=== PATIENT | female | born 2005 | race Caucasian/White ===

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

== ENCOUNTER 2024-02-05 09:26 | Emergency (ER) | payer MEDICAID, SELFPAY ==
[2024-02-05 09:34] VITALS: BP 114/79; PULSE 100; RESP 18; O2SAT 100; BMI 21.2
--- NOTE | 2024-02-05 09:50 | XR_ITS ---
WS: [id number] Portable AP upright chest, 02/05/2024 Clinical Data: dyspnea/cough Comparison: None. Findings: No nodules, masses or effusions are seen. The heart is normal. The pulmonary vascularity is not increased. No pneumonia or pneumothorax is seen. XR/XR chest 1V portable [id number] Impression: Negative chest.
--- NOTE | 2024-02-05 09:53 | ED_ITS ---
HPI - General Adult 2 General: Chief complaint: General Medical Stated complaint: Throat swelling, turning purple Time Seen by Provider: 02/05/24 09:32 History of Present Illness: 18-year-old female who presents to the mergency room complaining of sore throat for the last week. Still a bit of swelling in her lip piercing as well. States she feels like she has a hard time breathing on arrival here respiratory rate is normalized that is normal she denies fever sweats or chills. She has not had any productive cough. No vomiting. Associated symptoms: Deny chest pain, dyspnea or rash Related Data Previous Rx's Medication Instructions Recorded clindamycin HCl 300 mg capsule 300 mg PO Q6H 10 days #40 caps 02/05/24 methylprednisolone 4 mg tablets in See Rx Instructions PO .COMPLEX 02/05/24 a dose pack (Medrol (David)) #21 ea Allergies Allergy/AdvReac Type Severity Reaction Status Date / Time No Known Allergies Allergy Verified 11/25/23 13:19 Review of Systems 2 Const: Denies: fever(s) or chills ENMT: Reports: throat pain, enlarged tonsils, odynophagia and hoarseness Card: Denies: chest pain Resp: Denies: dyspnea GI: Denies: abdominal pain : Denies: dysuria, urinary frequency or urinary urgency Musc: Denies: neck pain or back pain Skin/Breast: Denies: rash PFSH ED 2 PFSH: Social History Second hand smoke exposure: Yes Current gender identity: Female Physical Exam 2 Const: COMMON NORMALS: no acute distress GENERAL APPEARANCE: cooperative and comfortable ORIENTATION/CONSCIOUSNESS: Yes awake, Yes oriented to person, Yes oriented to place and Yes oriented to time HENMT: COMMON NORMALS: normocephalic, atraumatic and hearing grossly normal bilaterally HEAD & SCALP: normocephalic and atraumatic OTHER: Pharyngeal tonsils mildly inflamed with tonsillar exudate present mild posterior pharyngeal erythema. Examination of teeth no evidence of any significant gum swelling abscesses or infected dental caries Neck/C-Spine: OTHER: Nonspecific cervical lymphadenopathy. No submandibular swelling or fullness no parietal swelling fullness or tenderness Resp: COMMON NORMALS: normal respiratory effort, No retractions, No use of accessory muscles and clear to auscultation bilaterally AUSCULTATION: clear to auscultation bilaterally Cardio: COMMON NORMALS: regular rate, regular rhythm and No murmurs present (Cardio) RATE: regular rate RHYTHM: regular rhythm GI: COMMON NORMALS: Soft to palpation and No hepatosplenomegaly present A USCULTATION: Yes normoactive bowel sounds PALPATION: Yes Soft to palpation, No Tenderness to palpation present (GI), No Guarding due to palpation present (GI) and Yes No hepatosplenomegaly present Extremity: COMMON NORMALS: normal to inspection, capillary refill normal, no clubbing, cyanosis or edema, no calf tenderness and no pedal edema Neuro: SENSORIUM/ORIENTATION: Yes oriented to person, Yes oriented to place and Yes oriented to time Skin: COMMON NORMALS: no rashes or lesions noted GENERAL SKIN EXAM: no rashes or lesions noted Course 2 Vital Signs: Vital signs: Vital Signs Pulse Rate 93 02/05/24 10:21 Respiratory Rate 18 02/05/24 09:34 Blood Pressure 114/79 02/05/24 10:21 Pulse Oximetry 100 02/05/24 10:21 Oxygen Delivery Me thod Room Air 02/05/24 09:34 MDM - General Adult Medical Decision Making Strep and mono negative. She did some exudates on her tonsils mild erythema. She is concerned about her lip as well there is a piercing on the left lateral lower lip the posterior aspect of the posterior appears to be really through the piercing of the skin. It appears that the original piercing encompassed a larger amount of tissue and now there is a smaller tighter ring in place and it is eroding through the oral mucosa due to the increased tension. Recommend starting on a steroid taper and clindamycin. This also helps there is any infectious component to the piercing of the lip although it does not appear to be the case on exam. Recommend she swap out the piercing to a larger loop to minimize tension on the skin. If not improving follow-up with primary care Medical Records I reviewed the patient's medical records. Lab Data I reviewed the patient's lab results. 02/05/24 09:36 02/05/24 09:36 Radiology Impressions Chest X-Ray 02/05/24 09:50 Impression: Negative chest. Laboratory Results WBC 8.08 10^3/uL (4.5-13.0) 02/05/24 09:36 RBC 4.46 10^6/uL (3.85-5.65) 02/05/24 09:36 Hgb 12.90 g/dL (12.4-14.8) 02/05/24 09:36 Hct 40.6 % (36-47) 02/05/24 09:36 MCV 91.0 fl (85-98) 02/05/24 09:36 MCH 28.9 pg (27-33) 02/05/24 09:36 MCHC 31.8 g/dL (30-55) 02/05/24 09:36 RDW 13.4 % (12.1-15.1) 02/05/24 09:36 Plt Count 306 10^3/cmm (157-399) 02/05/24 09:36 MPV 10.0 fL (7.4-10.4) 02/05/24 09:36 Neut % (Auto) 62.2 % 02/05/24 09:36 Lymph % (Auto) 26.6 % 02/05/24 09:36 Cook % (Auto) 9.2 % 02/05/24 09:36 Eos % (Auto) 1.2 % 02/05/24 09:36 Baso % (Auto) 0.4 % 02/05/24 09:36 Neut # (Auto) 5.03 10^3/uL (1.8-8.0) 02/05/24 09:36 Lymph # (Auto) 2.2 10^3/uL (1.5-6.5) 02/05/24 09:36 Cook # (Auto) 0.7 10^3/uL (0.2-0.9) 02/05/24 09:36 Eos # (Auto) 0.1 10^3/uL (0.0-0.8) 02/05/24 09:36 Baso # (Auto) 0.0 10^3/uL (0.0-0.1) 02/05/24 09:36 Nucleated RBC % (auto) 0 % 02/05/24 09:36 Nucleated RBCs # 0.0 /100WBC 02/05/24 09:36 Sodium 139 mmol/L (136-145) 02/05/24 09:36 Potassium 4.0 mmol/L (3.5-5.1) 02/05/24 09:36 Chloride 103 mmol/L (98-107) 02/05/24 09:36 Carbon Dioxide 28 mmol/L (22-29) 02/05/24 09:36 Anion Gap 12.0 (5-19) 02/05/24 09:36 BUN 10 mg/dL (6-20) 02/05/24 09:36 Creatinine 0.5 mg/dL (0.5-0.9) 02/05/24 09:36 GFR Calculation 158.9 mL/min (90-130) H 02/05/24 09:36 Glucose 72 mg/dL (65-115) 02/05/24 09:36 Calculated Osmolality 286 mOsm/kg (285-295) 02/05/24 09:36 Calcium 9.1 mg/dL (8.5-10.5) 02/05/24 09:36 Total Bilirubin 0.2 mg/dL (0.15-1.2) 02/05/24 09:36 AST 14 U/L (0-32) 02/05/24 09:36 ALT 10 U/L (0-33) 02/05/24 09:36 Alkaline Phosphatase 80 U/L (35-105) 02/05/24 09:36 Total Protein 7.5 g/dL (6.6-8.7) 02/05/24 09:36 Albumin 4.1 g/dL (3.5-5.2) 02/05/24 09:36 Globulin 3.4 g/dL (1.3-4.6) 02/05/24 09:36 Monoscreen Negative (Negative) 02/05/24 09:36 Group A Strep Rapid Negative (Negative) 02/05/24 10:14 All radiology interpretation(s) finalized by discharge Discharge Plan Discharge Patient Disposition: Home Clinical Impression: Pharyngitis, Piercing in left third of lower lip Condition: Stable Prescriptions: New clindamycin HCl 300 mg capsule 300 mg PO Q6H 10 Days Qty: 40 0RF Medrol (David) 4 mg tablets,dose pack See Rx Instructions .ROUTE .COMPLEX Qty: 21 0RF Rx Instructions: orally per package directions Discharge Orders: Discharge ED (Routine); Ordered 02/05/24 Ordered By: Rusty Toscano Referrals: Vilma Angelo MD [Primary Care Provider] - Discharge Diet: Usual diet Discharge Activity: Increase activity as tolerated Patient Instructions: Opioid Safety, Pain Management Activity Restrictions/Additional Instructions: Thank you for choosing [facility] for your healthcare needs today. It is very important that you follow up as instructed or that you return to the Emergency Department should you have concerns or if your condition changes or worsens in any way. You are seen today for complaint of sore throat there was some exudate on your tonsils strep and mono screening was negative. Additionally you are concerned about some swelling in your lower lip at the piercing. It appears the piercing may be putting excessive tension on the skin and is eroding through it. There is not appear to be any abscess or drainage at this time's. You are given steroid and clindamycin for the sore throat the clindamycin should also help if there is any infection at the lip. Follow-up with your primary care doctor. Coding Level of Care Code ED Roller Skate Assembler for Brenda Tijerina
[2024-02-05 10:02] LABS: Basophils % 0.4 %; Eosinophils # 0.1 10^3/uL (0.0-0.8); Eosinophils % 1.2 %; Hematocrit 40.6 % (36-47); Lymphocytes # 2.2 10^3/uL (1.5-6.5); Lymphocytes % 26.6 %; Mean Corpuscular HGB Conc 31.8 g/dL (30-55); Mean Corpuscular Hemoglobin 28.9 pg (27-33); Monocytes # 0.7 10^3/uL (0.2-0.9); Monocytes % 9.2 %; Neutrophils # 5.03 10^3/uL (1.8-8.0); Neutrophils % 62.2 %; Nucleated Red Blood Cells % 0 %; Platelet Count 306 10^3/cmm (157-399); Red Blood Count 4.46 10^6/uL (3.85-5.65); Red Cell Distribution Width 13.4 % (12.1-15.1); White Blood Count 8.08 10^3/uL (4.5-13.0)
[2024-02-05 10:10] LABS: Monoscreen Negative (Negative)
[2024-02-05 10:15] LABS: Alanine Aminotransferase 10 U/L (0-33); Albumin Level 4.1 g/dL (3.5-5.2); Alkaline Phosphatase 80 U/L (35-105); Aspartate Amino Transferase 14 U/L (0-32); Blood Urea Nitrogen 10 mg/dL (6-20); Calcium 9.1 mg/dL (8.5-10.5); Carbon Dioxide 28 mmol/L (22-29); Chloride 103 mmol/L (98-107); Creatinine Clr Calc Pharmacy 182.1051; Globulin 3.4 g/dL (1.3-4.6); Glomerular Filtration Rate 158.9 mL/min (90-130); Glucose 72 mg/dL (65-115); Osmolality Calculated 286 mOsm/kg (285-295); Sodium 139 mmol/L (136-145); Total Bilirubin 0.2 mg/dL (0.15-1.2); Total Protein 7.5 g/dL (6.6-8.7)
[2024-02-05] MEDS: methylPREDNISolone sod succ 125 mg/2 mL INJ IVP (10:17)
[2024-02-05 10:21] VITALS: BP 114/79; PULSE 93; O2SAT 100
[2024-02-05 10:33] LABS: Rapid Strep A Test Negative (Negative)
--- NOTE | 2024-02-05 11:35 | PC.NURSE ---
order given from provider to give pt a trial drink of water. this rn took water to pt and she took 2 drinks with no issues. pt was able to effectively swallow with no signs of choking or aspiration. notified.
[2024-02-05 12:49] VITALS: BP 108/63; PULSE 83; O2SAT 97
== END 2024-02-05 12:50 | disposition home or self-care (01) ==
PROVIDERS: Emergency Provider Family Medicine; PCP Family Medicine
DX: J02.9 Acute pharyngitis, unspecified (principal)
CPT/HCPCS: 71045; 80053; 85025; 86308; 87081; 87880; 96374; 99284; J2919

== ENCOUNTER 2024-08-05 21:21 | Emergency (ER) | payer BC, SELFPAY ==
[2024-08-05 21:26] VITALS: BP 136/91; PULSE 77; RESP 18; TEMP 36.6; O2SAT 99; BMI 22.0
--- NOTE | 2024-08-05 21:45 | ED_ITS ---
HPI - General Adult General: Chief complaint: Nausea/Vomiting/Diarrhea Stated complaint: Bad Reaction to Medication Dizzy N,V,Weakness Time Seen by Provider: 08/05/24 21:31 History of Present Illness: 18-year-old female with major depressive disorder was started on Wellbutrin 150 mg in addition to her fluoxetine on 07/25/2024. Patient reports within a day of starting the medication she started to have strange feelings in her body including sensation of jitteriness at times, nausea, sensitivity to smells, intermittently feeling blank in the head, restlessness, lightheadedness, intermittent binocular blurry vision, and sometimes general weakness. No fevers or chills. No shortness of breath chest pain or palpitations. No syncope. No swelling or hemoptysis. Last menstrual cycle was 1 week ago and denies possibility of . No bleeding. No diarrhea. Patient reports she stopped the medication on Thursday. Most of her symptoms are improving but she still had episodes of lightheadedness, feeling blank in the head, and nausea with vomiting today. She denies feeling anxious but does feel on edge, trouble relaxing, feels restless, worries frequently, and often feels afraid (like when driving a car). Associated symptoms: Deny chest pain, dyspnea, headache(s), rash or syncope Related Data Previous Rx's ?Medication ?Instructions ?Recorded methylprednisolone 4 mg tablets in See Rx Instructions PO .COMPLEX 02/05/24 a dose pack (Medrol (David)) #21 ea Allergies Allergy/AdvReac Type Severity Reaction Status Date / Time No Known Allergies Allergy Verified 08/05/24 21:29 Review of Systems General: Reports: 10 or more systems reviewed and unremarkable except in HPI and below Const: Denies: fever(s), chills or body aches ENMT: Denies: throat pain Card: Denies: chest pain, edema or syncope Resp: Denies: dyspnea or productive cough GI: Denies: abdominal pain or diarrhea : Denies: flank pain, dysuria or urinary frequency Musc: Denies: neck pain, back pain, extremity pain or extremity swelling Skin/Breast: Denies: rash or erythema Neuro: Denies: headache(s), numbness in extremities, lack of coordination or difficulty walking Psych: Reports: anxiety, depression, mood swings, irritability and difficulty concentrating; Denies: paranoia, visual hallucinations or auditory hallucinations PFSH ED PFSH: Social History Second hand smoke exposure: Yes Current gender identity: Female Female Reproductive History: Date of last menstrual period: 07/23/24 Physical Exam Const: COMMON NORMALS: no limitations, alert and well nourished EXAM LIMITATIONS: no altered mental status HENMT: COMMON NORMALS: normocephalic, atraumatic and external ears normal HEAD & SCALP: normocephalic and atraumatic EXTERNAL EAR: Yes external ears normal MOUTH: no muffled voice Eye: COMMON NORMALS: EOMs intact bilaterally, conjunctivae normal and no scleral icterus CONJUNCTIVA: Yes conjunctivae normal OTHER: dilated pupils, no nystagmus Neck/C-Spine: COMMON NORMALS: no JVD GENERAL: Yes normal visual inspection and Yes trachea midline Resp: COMMON NORMALS: normal respiratory effort, No use of accessory muscles and clear to auscultation bilaterally AUSCULTATION: clear to auscultation bilaterally Cardio: COMMON NORMALS: no JVD, regular rate and regular rhythm RATE: regular rate RHYTHM: regular rhythm GI: COMMON NORMALS: Soft to palpation and non-tender PALPATION: Yes Soft to palpation and No Guarding due to palpation present (GI) Extremity: COMMON NORMALS: normal to inspection Neuro: COMMON NORMALS: moves all extremities, no focal motor deficits and no sensory deficits noted SENSORIUM/ORIENTATION: Yes alert SPEECH: speech normal Psych: COMMON NORMALS: mental status grossly normal, Normal thought process present, cooperative and speech normal APPEARANCE: Yes grossly normal ATTITUDE: Yes Other attitude/behavior findings present (Psych) (anxious/re stless) ACTIVITY/MOTOR BEHAVIOR: Yes fidgeting and Yes restless SPEECH: Yes normal speech MOOD & AFFECT: No depressed mood, No elevated mood, No apathetic, Yes anxious, No euphoric, No sad and No expansive affect THOUGHT PROCESS: Normal thought process present THOUGHT CONTENT: Yes Normal thought content present Skin: COMMON NORMALS: no rashes or lesions noted, turgor normal and no jaundice GENERAL SKIN EXAM: no rashes or lesions noted and turgor normal Course Vital Signs: Vital signs: Vital Signs Temperature 97.9 F 08/05/24 21:26 Pulse Rate 77 08/05/24 21:26 Respiratory Rate 18 03/28/25 21:26 Blood Pressure 136/91 08/05/24 21:26 Pulse Oximetry 99 08/05/24 21:26 Oxygen Delivery Me thod Room Air 08/05/24 21:26 MDM - General Adult Medical Decision Making This could be a medication side effect but it is more likely anxiety. The patient was treated with a dose of diphenhydramine, alprazolam and Zofran. After 30 minutes, all of her symptoms had stopped. She was less restless. She was no longer shaking her leg. She no longer felt lightheaded or nauseated. I do not think this is a serotonin syndrome or anything else more malignant. LMP was last week and unlikely . Vitals are reassuring. Patient is now asymptomatic. She can be discharged. She will have to talk with her [facility] provider about the Wellbutrin which she has stopped. She continues on fluoxetine. Mother is with her and will be checking in with her frequently. No radiology studies performed this visit Discharge Plan Discharge Patient Disposition: Home Clinical Impression: Anxiety-like symptoms, Lightheadedness, Somatic complaints, multiple Condition: Stable Prescriptions: No Action Medrol (David) 4 mg tablets,dose pack See Rx Instructions .ROUTE .COMPLEX Qty: 21 0RF Rx Instructions: orally per package directions Discharge Orders: Discharge ED (Routine); Ordered 08/05/24 Ordered By: Cornel Wren Referrals: Vilma Angelo MD [Primary Care Provider] - 08/10/24 Patient Instructions: Lightheadedness (ED), Anxiety (ED), Pain Management Activity Restrictions/Additional Instructions: It is unclear whether your symptoms are secondary to Wellbutrin or whether they are unrelated. Regardless, if you feel more comfortable stopping your Wellbutrin then please talk to your doctor about alternate medications. Please read all discharge instructions and abide by recommendations and return precautions. Make an appointment to follow-up with your primary care doctor as directed for follow-up. Return to ER if getting worse or other emergent symptoms. Print Language: [place] Timorese Coding Level of Care Code ED Reaming Machine Operator for Brenda Tijerina
[2024-08-05] MEDS: ondansetron hcl ODT 4 mg Tab PO (22:00)
[2024-08-05] MEDS: diphenhydrAMINE 25 mg Capsule PO (22:01)
[2024-08-05] MEDS: ALPRAZolam 0.5 mg Tablet PO (22:01)
== END 2024-08-05 22:42 | disposition home or self-care (01) ==
PROVIDERS: Emergency Provider Emergency Medicine; PCP Family Medicine
DX: F41.9 Anxiety disorder, unspecified (principal); R42 Dizziness and giddiness; F45.0 Somatization disorder
CPT/HCPCS: 99283; J9999; Q0162